=== PATIENT | female | born 1965 | race Caucasian/White ===

== ENCOUNTER → 2016-12-10 | Outpatient (CLI) | payer BC | LOC: RAD 13:15 | PROVIDERS: ATTEND Family Medicine | DX: Z12.31 Encounter for screening mammogram for malignant neoplasm of breast (principal); Z80.3 Family history of malignant neoplasm of breast ==

== ENCOUNTER → 2017-01-01 | Outpatient (CLI) | payer BC ==
--- NOTE | 2017-01-01 17:40 | Diagnostic Imaging Report ---
EXAM: DIGITAL MAMMO RT DIAG W/CAD The current study was also evaluated with a Computer Aided Detection (CAD) system. INDICATION: Callback from recent diagnostic mammogram for a possible asymmetry in the medial right breast. COMPARISON: Mammograms 07/08/2009, 05/22/2011, and 12/11/2016. DENSITY: Scattered areas of fibroglandular density. FINDINGS: Spot compression of the medial right breast, posterior depth, demonstrates a persistent ill-defined, linear density in the medial right breast, posterior depth. IMPRESSION: Persistent benign-appearing but indeterminate density in the posterior right breast medially. RECOMMENDATION: Additional imaging of the right breast with targeted ultrasound. ACR BI-RADS Category 0: Incomplete. (Needs additional imaging evaluation). Result letter will be mailed to the patient. Note: At least 10% of breast cancer is not imaged by mammography. Dictated by: Dictated on workstation # [id number]
--- NOTE | 2017-01-01 17:47 | Diagnostic Imaging Report ---
EXAM: US breast limited, right. INDICATION: Asymmetry in the medial right breast, posterior depth. COMPARISON: Mammograms from 07/08/2009, 05/22/2011, 12/11/2016, 01/01/2017. DENSITY: Scattered areas of fibroglandular density. FINDINGS: Targeted ultrasound of the right breast, posterior depth, demonstrates only normal breast parenchyma. There is no mass or cyst in the medial right breast. IMPRESSION: No ultrasound findings suspicious for malignancy. RECOMMENDATION: Routine screening mammography in one year. BI-RADS category one: Negative. Dictated by: Dictated on workstation # [id number]
== END ==
LOC: RAD 08:51
PROVIDERS: ATTEND Family Medicine
DX: R92.2 Inconclusive mammogram (principal)
CPT/HCPCS: 76642; G0206